=== PATIENT | male | born 1935 | race Caucasian/White ===

== ENCOUNTER 2025-04-23 12:28 | Emergency (ER) | payer OTHER, MEDICARE, SELFPAY ==
--- OUTSIDE RECORDS SUMMARY | 2022-07-02 19:00 | XMS_ITS | Continuity of Care Document ---
Author Organization [facility] Address [address] [place] [address] Phone Care Team Providers Care Foreman Or Supervisor And Operator Name Role Phone Shukri Milner MD, MD Unavailable Unavailabl e Allergies, Adverse Reactions, Alerts Substance Reaction Status Criticality No Known Allergies Active No Inform ation Medications Medication Instructions Dosage Effective Dates (start - stop) Status Comments vitamin B complex tablet as needed - Active losartan 50 mg tablet take 1 tablet by o ral route every day 50 MG - Active Crestor 40 mg tablet take 1 tablet by or al route every day 40 MG - Active amlodipine 10 mg tablet take 1 tablet by oral route every day 10 MG - Active aspirin 81 mg tablet,delayed release take 1 tablet by oral route every day 81 MG - Active Procedures Procedure Date REPLACE AORTIC VALVE PERQ FEMORAL ARTRY APPROACH OFFICE/OUTPATIENT VISIT, NEW Advance Directives Directive Yes / No Effective Date File Name No Information Encounters Encounter Description Practice Location Reason(s) For Visit Diagnoses Date Provider Providers Copied on Encounter [facility], [address], [place], [address], [place] tel:[phone] [facility] TAVR Only Nonrheumatic aortic (valve) stenosisEncntr for exam for nrml cmprsn and ctrl in clncl [facility] prog 2 Alf Watt. [address], [place], [place], [id number] , [place]. tel:[phone] Referring Provider: Reymundo Zabala, [address], [place], [address]. tel:[phone] OFFICE/OUTPAT IENT VISIT, NEW [facility], [address], [place], [address], [place] tel:[phone] [facility] TAVR consult (chief complaint) Nonrheumatic aortic (valve) stenosisHyperlip idemia, unspecifiedBody mass index [BMI] 28.0-28.9, adult Jun- 2 Alf Watt. [address], [address], [place], [place], [id number] , [place]. tel:[phone] Referring Provider: Reymundo Zabala, [address], [place], [address]. tel:[phone] [facility], [address], [place], [address], [place] tel:[phone] [facility] Nonrheumatic aortic (valve) stenosisHyperlip idemia, unspecified 2 Alf Watt. [address], [place], [place], [id number] , [place]. tel:[phone] Family History Family Member Type Diagnosis Age At Onset No Information Payers Payer name Insurance type Covered republican ID karrie irwinketty(s) Medicare Part B [id number] [facility] [id number] Social History Type Description Quantity Date Captured Comments Sex Male Smoking Status No Information Chief Complaint And Reason For Visit No Information Reason For Referral Reason For Referral No Information Plan Of Treatment Date Type Action Status Goal Tobacco cessation counseling completed History Of Present Illness Encounter Date Complaint History Of Prese nt Illness TAVR consult Functional Status Date Functional Assessmen t No Information Instructions Date Instruction Additional Infor mation Giving encouragement to exercise Related to Body mass index [BMI] 28.0-28.9, adult Assessments Type Assessment Date No Information Patient Care Teams Name Effective Dates (start - stop) Status Members No Information
[2025-04-23 12:31] VITALS: BP 164/70; PULSE 62; RESP 16; TEMP 36.7; O2SAT 96; BMI 26.5
--- NOTE | 2025-04-23 12:56 | ED.C_ITS ---
HPI - Psych 2 General: Chief Complaint: Psychiatric Symptoms Stated Complaint: S/I Time Seen by Provider: 04/23/25 12:29 Source: patient and police Mode of arrival: ambulatory Limitations: no limitations History of Present Illness: 89-year-old male brought in by police on a 96-hour hold. Her 96-hour hold placed patient has been increasingly agitated. He patient's been screaming yelling at his family he also has not been taking care of his self not taking a bath or changing his close. Patient here has some confusion but denies SI or Hi. Patient also had made threats to his grandkids thinking they had stole his car family is concerned about safety of family members with his erratic behavior Related Data Home Medications ?Medication ?Instructions ?Recorded ?Confirmed finasteride 5 mg tablet 5 mg PO DAILY 04/23/2504/23 Physical Exam 2 Const: COMMON NORMALS: no acute distress, patient oriented x3 and healthy appearing HENMT: COMMON NORMALS: normocephalic and atraumatic HEAD & SCALP: n ormocephalic and atraumatic Eye: COMMON NORMALS: Equal, round and reactive pupils present and EOMs intact bilaterally PUPIL: Yes Equal, round and reactive pupils present Neck/C-Spine: COMMON NORMALS: full ROM and supple Chest: COMMONS NORMALS: normal inspection of the chest and normal palpation of entire chest wall Resp: COMMON NORMALS: normal respiratory effort, No retractions, No use of accessory muscles and clear to auscultation bilaterally AUSCULTATION: clear to auscultation bilaterally Cardio: COMMON NORMALS: regular rate, regular rhythm and No murmurs present (Cardio) RATE: regular rate RHYTHM: regular rhythm GI: COMMON NORMALS: Normal to inspection, nondistended, normoactive bowel sounds present, Soft to palpation, non-tender and no masses PALPATION: Yes Soft to palpation Extremity: COMMON NORMALS: normal to inspection and full ROM Neuro: COMMON NORMALS: patient oriented x3, moves all extremities and no focal motor deficits Psych: COMMON NORMALS: mental status grossly normal, Normal thought process present and cooperative THOUGHT PROCESS: Normal thought process present Skin: COMMON NORMALS: no rashes or lesions noted and no wounds GENERAL SKIN EXAM: no rashes or lesions noted Course 2 Vital Signs: Vital signs: Vital Signs Temperature 98.1 F 04/23/25 12:31 Pulse Rate 62 04/23/25 12:31 Respiratory Rate 16 04/23/25 12:31 Blood Pressure 164/70 04/23/25 12:31 Pulse Oximetry 96 04/23/25 12:31 Oxygen Delivery Me thod Room Air 04/23/25 12:31 [facility] - Psych Medical Decision Making Patient presents here with acute psychosis along with agitation likely has a slight dementia as well. Patient is brought in on a 96-hour hold by family. Patient has been medically cleared will transfer to geriatric psych facility for higher level care as we do not have a geriatric psych facility here. Patient has been stable while here Medical Records I reviewed the patient's medical records. Lab Data I reviewed the patient's lab results. 04/23/25 12:54 04/23/25 12:54 Radiology Impressions Chest X-Ray 04/23/25 14:31 IMPRESSION: No acute chest abnormality. Laboratory Results WBC 9.65 10^3/uL (3.29-11.43) 04/23/25 12:54 RBC 4.88 10^6/uL (3.85-5.65) 04/23/25 12:54 Hgb 14.00 g/dL (11.27-16.99) 04/23/25 12:54 Hct 43.6 % (37-53) 04/23/25 12:54 MCV 89.3 fl (82-101) 04/23/25 12:54 MCH 28.7 pg (27-33) 04/23/25 12:54 MCHC 32.1 g/dL (30-55) 04/23/25 12:54 RDW 13.9 % (12.1-15.1) 04/23/25 12:54 Plt Count 205 10^3/cmm (157-399) 04/23/25 12:54 MPV 10.6 fL (7.4-10.4) H 04/23/25 12:54 Neut % (Auto) 57.5 % 04/23/25 12:54 Lymph % (Auto) 33.4 % 04/23/25 12:54 [place] % (Auto) 7.0 % 04/23/25 12:54 Eos % (Auto) 1.1 % 04/23/25 12:54 Baso % (Auto) 0.8 % 04/23/25 12:54 Neut # (Auto) 5.54 10^3/uL (1.8-7.7) 04/23/25 12:54 Lymph # (Auto) 3.2 10^3/uL (0.8-4.8) 04/23/25 12:54 [place] # (Auto) 0.7 10^3/uL (0.2-0.9) 04/23/25 12:54 Eos # (Auto) 0.1 10^3/uL (0.0-0.8) 04/23/25 12:54 Baso # (Auto) 0.1 10^3/uL (0.0-0.1) 04/23/25 12:54 Nucleated RBC % (auto) 0 % 04/23/25 12:54 Nucleated RBCs # 0.0 /100WBC 04/23/25 12:54 Sodium 142 mmol/L (136-145) 04/23/25 12:54 Potassium 4.3 mmol/L (3.5-5.1) 04/23/25 12:54 Chloride 105 mmol/L (98-107) 04/23/25 12:54 Carbon Dioxide 22 mmol/L (22-29) 04/23/25 12:54 Anion Gap 19.3 (5-19) H 04/23/25 12:54 BUN 25 mg/dL (8-23) H 04/23/25 12:54 Creatinine 1.1 mg/dL (0.7-1.2) 04/23/25 12:54 GFR Calculation Not Reportable 04/23/25 12:54 Glucose 118 mg/dL (65-115) H 04/23/25 12:54 Calculated Osmolality 299 mOsm/kg (285-295) H 04/23/25 12:54 Calcium 9.6 mg/dL (8.5-10.5) 04/23/25 12:54 Total Bilirubin 0.6 mg/dL (0.15-1.2) 04/23/25 12:54 AST 22 U/L (0-40) 04/23/25 12:54 ALT 26 U/L (0-41) 04/23/25 12:54 Alkaline Phosphatase 57 U/L (40-130) 04/23/25 12:54 Total Protein 7.2 g/dL (6.6-8.7) 04/23/25 12:54 Albumin 4.6 g/dL (3.5-5.2) 04/23/25 12:54 Globulin 2.6 g/dL (1.3-4.6) 04/23/25 12:54 TSH 2.73 uIU/mL (0.27-4.20) 04/23/25 12:54 Free T4 1.18 ng/dL (0.82-1.77) 04/23/25 12:54 Free T3 2.6 PG/ML (2.0-4.4) 04/23/25 12:54 Urine Color Yellow (Yellow) 04/23/25 14:29 Urine Appearance Clear (CLEAR) 04/23/25 14:29 Urine pH 6.0 (5-7) 04/23/25 14:29 Ur Specific [place] 1.024 (1.005-1.030) 04/23/25 14:29 Urine Protein Trace (Negative) A 04/23/25 14:29 Urine Glucose (UA) Negative (Normal) 04/23/25 14:29 Urine Ketones Trace (Negative) 04/23/25 14:29 Urine Blood Negative (Negative) 04/23/25 14:29 Urine Nitrate Negative (Negative) 04/23/25 14:29 Urine Bilirubin Negative (Negative) 04/23/25 14:29 Urine Urobilinogen 1.0 mg/dL (Negative) 04/23/25 14:29 Ur Leukocyte Esterase Negative (Negative) 04/23/25 14:29 Urine RBC 0-2 /hpf (0-2) 04/23/25 14:29 Urine WBC 0-5 /hpf (0-5) 04/23/25 14:29 Ur Squamous Epith Cells 0-5 /hpf (0-5) 04/23/25 14:29 Amorphous Sediment Not Reportable 04/23/25 14:29 Urine Bacteria None seen /hpf (NONE) 04/23/25 14:29 Hyaline Casts 1.65 /lpf 04/23/25 14:29 Salicylates < 0.3 mg/dL (3-10) L 04/23/25 12:54 Urine Opiates Screen Negative ng/mL (Negative) 04/23/25 14:29 Acetaminophen < 5.0 ug/mL (10-30) L 04/23/25 12:54 Ur Barbiturates Screen Negative ng/mL (Negative) 04/23/25 14:29 Ur Phencyclidine Scrn Negative ng/mL (Negative) 04/23/25 14:29 Ur Amphetamines Screen Negative ng/mL (Negative) 04/23/25 14:29 U Benzodiazepines Scrn Negative ng/mL (Negative) 04/23/25 14:29 Urine Cocaine Screen Negative ng/mL (Negative) 04/23/25 14:29 U Marijuana (THC) Screen Negative ng/mL (Negative) 04/23/25 14:29 Ethyl Alcohol < 10 mg/dL (0-10) 04/23/25 12:54 All radiology interpretation(s) finalized by discharge EKG Data EKG 1: I personally reviewed and interpreted this EKG as follows: EKG interpretation date: 04/23/25 EKG interpretation time: 14:14 Interpretation: nsr hr [address] elevation qrs 137 qtc 427 Discharge Plan Discharge Patient Disposition: Xfer Short-Term Hosp Clinical Impression: Acute psychosis Condition: Stable Print Language: Cook Islander Coding Level of Care Code ED Supervisor [employer] for Emilio Hamm
[2025-04-23 13:02] LABS: Hematocrit 43.6 % (37-53); Hemoglobin 14.00 g/dL (11.27-16.99); Mean Corpuscular HGB Conc 32.1 g/dL (30-55); Mean Corpuscular Hemoglobin 28.7 pg (27-33); Mean Corpuscular Volume 89.3 fl (82-101); Nucleated Red Blood Cells % 0 %; Platelet Count 205 10^3/cmm (157-399); Red Blood Count 4.88 10^6/uL (3.85-5.65); White Blood Count 9.65 10^3/uL (3.29-11.43)
--- NOTE | 2025-04-23 13:03 | PC.NURSE ---
This nurse and security inventoried patient belongings. Patient has $613 dollars and a wallet full of cards. This nurse and Nina counted patients money in front of him and placed in a patient valuables envelope. This was placed in the house supervisors [place]il[place] and patient is aware.
--- NOTE | 2025-04-23 13:19 | PC.NURSE ---
Involuntary 96 hour hold rights read and reviewed with patient. Nina from security present during reading of rights. Copy of rights given to patient.
[2025-04-23 13:29] LABS: Alanine Aminotransferase 26 U/L (0-41); Albumin Level 4.6 g/dL (3.5-5.2); Alkaline Phosphatase 57 U/L (40-130); Anion Gap 19.3 (5-19); Aspartate Amino Transferase 22 U/L (0-40); Blood Urea Nitrogen 25 mg/dL (8-23); Calcium 9.6 mg/dL (8.5-10.5); Carbon Dioxide 22 mmol/L (22-29); Chloride 105 mmol/L (98-107); Creatinine Clr Calc Pharmacy 50.7959; Globulin 2.6 g/dL (1.3-4.6); Glucose 118 mg/dL (65-115); Osmolality Calculated 299 mOsm/kg (285-295); Potassium 4.3 mmol/L (3.5-5.1); Sodium 142 mmol/L (136-145); Thyroid Stimulating Hormone 2.73 uIU/mL (0.27-4.20); Total Protein 7.2 g/dL (6.6-8.7)
[2025-04-23 13:36] LABS: Acetaminophen < 5.0 ug/mL (10-30); Alcohol Level < 10 mg/dL (0-10); Salicylate < 0.3 mg/dL (3-10)
--- NOTE | 2025-04-23 14:14 | ECG_ITS ---
[facility]23 Pat Name: [facility] Department: Room: Gender: Male Lav Crewman: : 1935 Requested By: Sharath Pereira Order Number: [id number] Cynthia MD: Juan Graff M.D. Measurements Intervals [place] Rate: 73 P: 0 [place]: 0 QRS: -50 QRSD: 137 T: 79 QT: 401 QTc: 443 Interpretive Statements SINUS RHYTHM LEFT AXIS DEVIATION [QRS AXIS < -30] INTRAVENTRICULAR CONDUCTION DELAY [130+ ms QRS DURATION] SEPTAL MYOCARDIAL INFARCTION , OF INDETERMINATE AGE [40+ ms Q WAVE IN V1/V2] No previous ECG available for comparison Electronically Signed On 04-24-2025 13:05:41 CDT by Juan Graff M.D. [email or web address]
--- NOTE | 2025-04-23 14:31 | XR_ITS ---
WS: [id number] XR chest 1V portable [id number] REASON FOR EXAM: PSYCH CLEARANCE/PLACEMENT FINDINGS: Calcification of the aortic arch with moderate tortuosity and mild ectasia of the thoracic aorta. Normal heart size. Aortic valve stent graft. Calcified granulomas disease bilaterally. No acute pulmonary parenchymal or pleural abnormality. 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 XR/XR chest 1V portable [id number] IMPRESSION: No acute chest abnormality.
[2025-04-23 14:38] LABS: Glucose Urine UA Negative (Normal); Nitrate Urine Negative (Negative); Specific Gravity, Urine 1.024 (1.005-1.030)
--- NOTE | 2025-04-23 14:41 | PC.NURSE ---
Daughter of Patient I was called by the daughter of the patient. She asked that her name and number be placed in the patient's chart in the event that anyone needed to contact her. She also stated that she has signed DPOA paperwork and she would bring a copy to have that placed in the patient chart as well. Kyara Ellis [phone]
[2025-04-23 14:43] LABS: Add Urine Microscopic? YES
[2025-04-23 14:46] LABS: PCP Screen Urine Negative (Negative)
[2025-04-23 15:11] LABS: Free T4 Free Thyroxine 1.18 ng/dL (0.82-1.77)
[2025-04-23 18:57] VITALS: BP 148/70; PULSE 65; O2SAT 96
== END 2025-04-23 20:21 | disposition short-term general hospital (02) ==
PROVIDERS: Emergency Provider Emergency Medicine
DX: F23 Brief psychotic disorder (principal)
CPT/HCPCS: 36415; 71045; 80053; 80306; 80307; 81001; 84439; 84443; 84481; 85025; 93005; 99285